=== PATIENT | female | born 1990 ===

== ENCOUNTER 2019-01-07 09:11 | Emergency (ER) | payer OTHER, SELFPAY ==
[2019-01-07 09:45] VITALS: BP 127/79; PULSE 70; RESP 16; TEMP 36.9; O2SAT 97
--- NOTE | 2019-01-07 10:33 | DI.RAD.S_ITS ---
PROCEDURE: XR CHEST 2V INDICATIONS: left sided pain TECHNIQUE: 2 views of the chest were acquired. COMPARISON: None. FINDINGS: Surgical changes and devices: None. Lungs and pleura: Lungs are clear. No pleural effusions or pneumothorax. Mediastinum: Mediastinal contours are normal. Heart size is normal. Bones and chest wall: No suspicious bony abnormalities. Soft tissues appear unremarkable. IMPRESSION: Negative chest. No acute cardiopulmonary process is suspected. Dictated by: Rikki Herron M.D. on 01/07/2019 at 10:00 Approved by: Rikki Herron M.D. on 01/07/2019 at 10:01
--- NOTE | 2019-01-07 10:38 | ED_ITS ---
HPI - Chest Pain General Chief Complaint: Chest Pain Stated Complaint: left side pain Time Seen by Provider: 01/07/19 10:22 Source: patient Mode of arrival: ambulatory Limitations: no limitations History of Present Illness HPI narrative: Patient is a 28-year-old female who presents with left-sided chest pain. It is in 1 particular spot underneath her left breast. She woke up this morning around 2:00 a.m. with it. It sometimes radiates around towards her sternum but really is in 1 spot it is not any worse when she breathes or moves. She took some ibuprofen which seemed to help but is not completely gone yet. She denies any coughing, sneezing, she has strenuous movement. She has not had a period in over a month and a half she is on long her control MD complaint: chest pain Duration: constant Pain location: left chest Severity: mild Quality: sharp Review of Systems Review of Systems GENERAL: Denies chills, fatigue, malaise, fever, sweats, travel HEENT: Denies sinus pain, ear pain, sore throat, difficulty swallowing, neck pain RESPIRATORY: Denies dyspnea, cough, wheezing, hemoptysis, sputum. CARDIOVASCULAR: See HPI GASTROINTESTINAL: Denies nausea, vomiting, abdominal pain, diarrhea, constipation, melena. : Denies dysuria, frequency, incontinence, hematuria, urinary retention, flank pain. MUSCULOSKELETAL: Denies weakness, joint pain, or bony pain SKIN: No rash, no erythema, no pruritus NEUROLOGIC: Denies weakness, dizziness, headache, numbness, change in speech, confusion PSYCHIATRIC: No concerning psychosocial issues. 12 point review of systems is negative except for those stated above and HPI [facility] Medical History Patient denies significant medical history (Acute) Social History Smoking Status: Never smoker Social History Smoking Status: Never smoker Exam Initial Vital Signs Initial Vital Signs: Vital Signs Temperature 98.5 F 01/07/19 09:45 Pulse Rate 70 01/07/19 09:45 Respiratory Rate 16 01/07/19 09:45 Blood Pressure 127/79 01/07/19 09:45 Pulse Oximetry 97 01/07/19 09:45 GENERAL: Well-appearing, well-nourished and in no acute distress. HEENT: Head atraumatic,EOMI, pupils reactive, face symmetric, moist mucous memb ranes CARDIOVASCULAR: Regular rate and rhythm without murmurs, rubs or gallops. Left rib pain under left breast pinpoint to palpation tender reproducible RESPIRATORY: Breath sounds equal bilaterally, no wheezes rales or rhonchi. ABDOMEN: Soft, nontender. Normoactive bowel sounds all 4 quadrants. No guarding or rebound. EXTREMITIES: Normal range of motion, no clubbing or edema. Neurovascularly intact NEUROLOGICAL: Alert and oriented x4.Normal gait and speech. SKIN: Warm, dry, no laceration, no petechiae, no rashes or lesions. Course Orders Ordered: ED Orders 01/07/19 10:33 XR chest 2V Stat Vital Signs - 8 hr 01/07/19 09:45 01/07/19 11:15 Temperature 98.5 F Pulse Rate 70 78 Respiratory Rate 16 14 Blood Pressure 127/79 Blood Pressure [Left Arm] 127/71 Pulse Oximetry 97 100 MDM - Chest Pain Lab Data Point of Care Testing Test Results Negative Imaging Data Chest x-ray: Radiologist's impression: PROCEDURE: XR CHEST 2V INDICATIONS: left sided pain TECHNIQUE: 2 views of the chest were acquired. COMPARISON: None. FINDINGS: Surgical changes and devices: None. Lungs and pleura: Lungs are clear. No pleural effusions or pneumothorax. Mediastinum: Mediastinal contours are normal. Heart size is normal. Bones and chest wall: No suspicious bony abnormalities. Soft tissues appear unremarkable. IMPRESSION: Negative chest. No acute cardiopulmonary process is suspected. Dictated by: Rikki Herron M.D. on 01/07/2019 at 10:00 ECG Data Attestation: I personally reviewed and interpreted this ECG as follows: Prior ECG tracings: not available for review Interpretation: Normal sinus rhythm rate 80 [place] interval [address] changes no T-wave inversions no active MDM Narrative Medical decision making narrative: Patient's pain is in 1 point reproducible., consistent musculoskeletal problem. Discharge Plan Departure Patient Disposition: Home Clinical Impression: Acute costochondritis Instructions: Costochondritis Activity Restrictions/Additional Instructions: *You have been diagnosed with costochondritis *What to do: Recommend ice or heat whichever makes it feel better. This may take up to 1-2 weeks to heal *Continue to take medications as directed Ibuprofen 600 mg every 6-8 hours if needed for pain *Follow up with your primary care provider in 2-3 days *Return to ER if you should have increasing pain, shortness of breath or any new, worsening or concerning symptoms
[2019-01-07 11:15] VITALS: BP 127/71; PULSE 78; RESP 14; O2SAT 100
== END 2019-01-07 11:10 | disposition home or self-care (01) ==
PROVIDERS: Emergency Provider Emergency Medicine
DX: M94.0 Chondrocostal junction syndrome [Tietze] (principal)
CPT/HCPCS: 71046; 81025; 93005; 93010; 99282; 99284